=== PATIENT | male | born 1945 | race Caucasian/White ===

== ENCOUNTER 2016-07-21 07:39 | Outpatient (CLI) | payer MEDICARE, OTHER ==
[2016-07-21 13:17] LABS: ALBUMIN/GLOBULIN RATIO 1.8 (1.0-2.2); BILIRUBIN,TOTAL 1.1 mg/dL (0.2-1.0); BUN - BLOOD UREA NITROGEN 19 mg/dL (6-20); CALCIUM 9.3 mg/dL (8.5-10.3); CARBON DIOXIDE - CO2 28 mmol/L (21-32); CHLORIDE 103 mmol/L (101-111); CHOL/HDL RATIO 3.3 (<5.0); CHOLESTEROL 208 mg/dL; CREATININE 0.9 mg/dL (0.6-1.2); GFR - MDRD 84 (>89); GLUCOSE 93 mg/dL (70-100); HDL CHOLESTEROL 64 mg/dL; POTASSIUM 3.3 mmol/L (3.5-5.0); SODIUM 140 mmol/L (135-145); TOTAL PROTEIN 6.7 g/dL (6.7-8.2); TRIGLYCERIDES 78 mg/dL; VLDL CHOLESTEROL 16 mg/dL
== END 2016-07-21 07:40 | disposition home or self-care (01) ==
LOC: LAB.WCP 07:39
PROVIDERS: ATTEND Family Medicine
DX: E78.5 Hyperlipidemia, unspecified (principal); Z12.5 Encounter for screening for malignant neoplasm of prostate
CPT/HCPCS: 36415; 80053; 80061; G0103; 84153

== ENCOUNTER 2016-08-06 16:19 | Outpatient (CLI) | payer MEDICARE, OTHER ==
--- NOTE | 2016-08-06 19:29 | MRI Report ---
EXAM MRA BRAIN EXAM DATE: 08/06/2016 05:26 PM. CLINICAL HISTORY: Essential hypertension, benign. Family history of brain hemorrhage is reported. COMPARISON: None. TECHNIQUE: Multiplanar, multisequence MRA sequences of the brain were performed. Other: None. Post-pr ocessing: Multiplanar 3D MIP reconstructions. IV Contrast: None. FINDINGS: No evidence for grand traverse of Gusman aneurysm. The distal internal carotid arteries are patent and there is no evidence for intracranial or vertebrobasilar insufficiency. Patent bilateral posterior communicating arteries, larger on the left than the right. No proximal intracranial large artery occlusion, filling defect or focal flow-limiting stenosis. IMPRESSION: Unremarkable screening grand traverse of [place]man MRA, no evidence for large artery flow-limiting s tenosis or grand traverse of Gusman aneurysm. [facility] Referring Provider Line: [phone] SITE ID: [id number]
== END 2016-08-06 16:20 | disposition home or self-care (01) ==
LOC: DI 16:19
PROVIDERS: ATTEND Physician Assistant Medical
DX: I10 Essential (primary) hypertension (principal)
CPT/HCPCS: 70544